=== PATIENT | female | born 1980 | race Caucasian/White ===

== ENCOUNTER 2017-06-10 12:59 | Day surgery (SDC) | payer OTHER ==
[~2017-06-10] VITALS: Ht 167.6 cm; Wt 74.4 kg
[~2017-06-10 12:59] MED LIST: ALTACE 5MG5 MG PO; BACTRIM DS 8001 TAB; FORTAMET500 M1 PO; LEVEMIR SQ; LEVEMIR100 U/ML SC; MOTRIN 200200 MG/TAB PO; NORCO 325 MG-51 TAB PO; NOVOLOG 100U100 U/ML SQ; NOVOLOG FLEX100 U/ML SC; PHENERGAN 25 TA25 MG PO; PRENATAL1 TA1 PO; ULTRAM 50MG TAB50 MG PO; ZOFRAN ODT8 MG PO
[2017-06-10] MEDS ORDERED: PAXIL 10MG10 MG PO (13:15)
[2017-06-10 13:31] VITALS: BP 136/106; PULSE 80; TEMP 98.5
[2017-06-10 15:20] VITALS: BP 117/83; PULSE 96; TEMP 98.4
[2017-06-10 15:35] VITALS: BP 128/87; PULSE 92
[2017-06-10 15:50] VITALS: BP 114/75; PULSE 89
[2017-06-10 16:12] VITALS: BP 118/86; PULSE 96
== END 2017-06-10 16:00 | disposition home or self-care (01) ==
LOC: SDCO 12:59
DX: K31.7 Polyp of stomach and duodenum (principal); K64.0 First degree hemorrhoids; E11.9 Type 2 diabetes mellitus without complications; K29.30 Chronic superficial gastritis without bleeding; Z79.84 Long term (current) use of oral hypoglycemic drugs
CPT/HCPCS: OP; J2250; J2405; J3010; J7030

== ENCOUNTER → 2019-01-25 | Outpatient (CLI) | payer OTHER ==
[~2019-01-25] MED LIST changes: +PAXIL 10MG10 MG PO
== END ==
LOC: DIA.ED 10:14 → SUN.DIA 15:47
DX: E11.9 Type 2 diabetes mellitus without complications (principal); I10 Essential (primary) hypertension
CPT/HCPCS: G0108

== ENCOUNTER → 2019-03-02 | Outpatient (CLI) | payer OTHER | LOC: DIA.ED 09:22 | DX: E11.9 Type 2 diabetes mellitus without complications (principal); E78.5 Hyperlipidemia, unspecified | CPT/HCPCS: G0108 ==

== ENCOUNTER → 2019-05-26 | Outpatient (CLI) | payer OTHER | LOC: COL.RAD 08:39 | DX: Z01.812 Encounter for preprocedural laboratory examination (principal); M47.816 Spondylosis without myelopathy or radiculopathy, lumbar region; M48.061 Spinal stenosis, lumbar region without neurogenic claudication; Z98.1 Arthrodesis status | CPT/HCPCS: A9585 ==

== ENCOUNTER 2019-06-07 17:25 | Inpatient (IN) | payer OTHER ==
[~2019-06-07] VITALS: Ht 167.6 cm; Wt 68.3 kg
[~2019-06-07 17:25] MED LIST changes: -ALTACE 2.5MG T2.5 MG PO; -JARDIANCE10 PO; -TRADJENTA5 MG PO; -WELLBUTRIN SR150 M1 PO
[2019-06-07 19:28] LABS: ACETONE,SERUM MODERATE
[2019-06-07 20:06] LABS: ARTERIAL BLD GAS O2 SATURATION 90.7 % (92-100); ARTERIAL BLD GAS TCO2 CT 12.9; ARTERIAL BLOOD GAS BASE EXCESS -11.9 (-2-2); ARTERIAL BLOOD GAS HCO3 12.2 meq/L (22-26); ARTERIAL BLOOD GAS PO2 60.6 mmHg (80-100); ARTERIAL BLOOD GAS pH 7.32 (7.35-7.45)
[2019-06-07 20:47] LABS: LIPASE 6631 U/L (23-300)
[2019-06-07 21:44] VITALS: BP 125/89; PULSE 117; TEMP 98.5
[2019-06-07] MEDS ORDERED: WELLBUTRIN SR150 M1 PO (21:47)
[2019-06-07] MEDS ORDERED: TRADJENTA5 MG PO (21:50)
[2019-06-07 23:54] VITALS: BP 115/71; PULSE 107; TEMP 97.5
[2019-06-08 03:59] VITALS: BP 115/74; PULSE 90; TEMP 98.5
--- NOTE | 2019-06-08 04:15 | NUR ---
Patient in bed, resting. States pain is 2/10 in abdomen. Denies prn pain medication. Denies further needs at this time. Will continue to monitor.
[2019-06-08 07:45] VITALS: BP 125/78; PULSE 93; TEMP 98.9
[2019-06-08 08:12] LABS: BASO % 0.3 % (0.0-2.0); EOS # 0.1 (0.0-0.7); EOS % 0.9 % (0-4.0); GRAN % 72.6 % (42.2-75.2); HEMOGLOBIN 11.6 g/dl (12.5-16.0); LYMPH % 14.2 % (20.0-51.0); MEAN CELL VOLUME 99 fl (80.0-100.0); MEAN CORPUSCULAR HEMOGLOBIN 34 pg (27.0-31.0); MEAN CORPUSCULAR HGB CONC 34 g/dl (33.0-37.0); MEAN PLATELET VOLUME 10.3 fl (7.4-10.4); MONO # 0.8 (0.1-0.6); MONO % 11.1 % (1.7-9.3); PLATELET COUNT 118 K/mm3 (130-400); RED BLOOD COUNT 3.46 M/mm3 (4.10-5.30); REDCELL DISTRIBUTION WIDTH-CV 11.8 % (11.5-14.5)
[2019-06-08 08:13] LABS: HEMATOCRIT 34.4 % (37.0-47.0)
[2019-06-08 08:33] LABS: CALCIUM 7.9 mg/dL (8.4-10.2); CREATININE, serum 0.45 (0.52-1.25); POTASSIUM 3.7 mmol/L (3.4-5.0)
--- NOTE | 2019-06-08 09:25 | NUR ---
Pt awake and alert this morning upon entry, no C/O pain at this time, states she has some discomfort in her abdominal area, Shift assessments complete, left Pt call light in reach, bed in lowest position.
--- NOTE | 2019-06-08 09:44 | NUR ---
Initial visit; Patient thanked Market Research Analyst for looking in on her and offering spiritual care. Market Research Analyst will keep Aylin in her prayers.
[2019-06-08 12:04] VITALS: BP 137/94; PULSE 94; TEMP 98.1
--- NOTE | 2019-06-08 15:05 | NUR ---
PEDIATRIC NURSE PRACTITIONER student met with the patient to discuss a discharge plan. The patient lives near [place] with a [place] address. The patient lives with her and their three kids. The patient does not use DME and reports independence with ADLs. The patient's PCP is Dr. Rae and patient receives medication from [facility] with no difficulties. The patient does not have advanced directives in the EMR. The patient plans to return home upon discharge with her providing transportation. There are no additional needs at this time.
[2019-06-08 15:44] VITALS: BP 115/74; PULSE 97; TEMP 98.9
[2019-06-08 20:07] VITALS: BP 133/84; PULSE 96
--- NOTE | 2019-06-08 22:15 | NUR ---
PT IN [employer] TONIGHT. WATCHING MOVIE ON HER LAP TOP. DENIES ANY PAIN, SOA. NS INFUSING IN L FA AT 150ML/HR. NO S/S INFILTRATION. A&O X4. UP AD JOSEPH IN ROOM. CALL LIGHT IN REACH.
[2019-06-08 23:16] VITALS: BP 139/95; PULSE 92
[2019-06-09 03:55] VITALS: BP 139/97; PULSE 130; TEMP 98.6
--- NOTE | 2019-06-09 04:00 | NUR ---
Pt sweaty and feels her heart racing. BSS 44. Crisp juice and apple juice given. Pt wants to take shower but I explained to her that it is not safe until we get her blood sugar up and she is feeling better. Rechecked blood sugar at 0455 and she was 100 and feeling much better. VS better.
--- NOTE | 2019-06-09 06:40 | NUR ---
awake resting in bed, up and about independently in room, bedside shift report received from VADIM Garcia
--- NOTE | 2019-06-09 07:08 | NUR ---
Blood sugar 170 and reported to oncoming nurse.
[2019-06-09 07:17] LABS: BASO % 0.2 % (0.0-2.0); EOS % 0.2 % (0-4.0); GRAN # 4.5 (1.4-6.5); GRAN % 82.7 % (42.2-75.2); HEMOGLOBIN 11.4 g/dl (12.5-16.0); LYMPH # 0.4 (1.2-3.4); LYMPH % 7.9 % (20.0-51.0); MEAN CELL VOLUME 98 fl (80.0-100.0); MEAN CORPUSCULAR HEMOGLOBIN 33 pg (27.0-31.0); MEAN CORPUSCULAR HGB CONC 34 g/dl (33.0-37.0); MONO # 0.4 (0.1-0.6); MONO % 7.9 % (1.7-9.3); PLATELET COUNT 108 K/mm3 (130-400); RED BLOOD COUNT 3.41 M/mm3 (4.10-5.30); REDCELL DISTRIBUTION WIDTH-CV 11.6 % (11.5-14.5)
[2019-06-09 07:26] LABS: HEMATOCRIT 33.4 % (37.0-47.0)
[2019-06-09 07:31] LABS: BILIRUBIN,TOTAL 1.2 mg/dL (0.0-1.0); CALCIUM 8.4 mg/dL (8.4-10.2); CREATININE, serum 0.41 (0.52-1.25); MAGNESIUM 1.3 mg/dL (1.6-2.3); POTASSIUM 3.6 mmol/L (3.4-5.0); TOTAL PROTEIN 7.2 gm/dL (6.4-8.2)
[2019-06-09 08:38] VITALS: BP 133/88; PULSE 92; TEMP 98.8
--- NOTE | 2019-06-09 09:15 | NUR ---
resting in bed, Dr Ross was in and saw patient, had regular food and has tolerated well, full assessment completed, see interventions for further info, denies needs
--- NOTE | 2019-06-09 11:09 | NUR ---
resting in bed working on her Woo[employer]
[2019-06-09 12:29] VITALS: BP 140/88; PULSE 97; TEMP 97.6
[2019-06-09] MEDS ORDERED: JARDIANCE10 PO (12:39)
[2019-06-09] MEDS ORDERED: ALTACE 2.5MG T2.5 MG PO (12:39)
--- NOTE | 2019-06-09 13:18 | NUR ---
Magnesium transfused. Patient tolerated well. Discharge paperwork reviewed with patient. Patient verbalzied an understanding of following doctors orders. IV removed, tip intact, gauze and coban appllied. No further needs expressed from patient. Call light within reach
--- NOTE | 2019-06-09 13:31 | NUR ---
Patient ambulated independently outside with nursing staff. Discharge paperwork and personal belonings with patient. No further needs expressed from patient.
== END 2019-06-09 13:30 | disposition home or self-care (01) | DRG 440 ==
LOC: COL.ER 17:25 → MEDICAL 20:31
PROVIDERS: Emergency Medicine; Internal Medicine; Nurse Practitioner Family; ADMIT Student in an Organized Health Care Education/Training Program
DX: K85.90 Acute pancreatitis without necrosis or infection, unspecified (principal); I10 Essential (primary) hypertension; F32.9 Major depressive disorder, single episode, unspecified; F41.9 Anxiety disorder, unspecified; E83.42 Hypomagnesemia; E11.65 Type 2 diabetes mellitus with hyperglycemia; Z90.710 Acquired absence of both cervix and uterus; Z90.49 Acquired absence of other specified parts of digestive tract
CPT/HCPCS: 99222-AI; 99232-AI; 99239; J1650; J1815; J1885; J2270; J3010; J3475; J7030

== ENCOUNTER → 2019-06-07 | Outpatient (CLI) | payer OTHER ==
[~2019-06-07] MED LIST changes: +ALTACE 2.5MG T2.5 MG PO; +JARDIANCE10 PO; +TRADJENTA5 MG PO; +WELLBUTRIN SR150 M1 PO
== END ==
LOC: COL.RAD 15:56
DX: K76.0 Fatty (change of) liver, not elsewhere classified (principal); Z90.49 Acquired absence of other specified parts of digestive tract; Z90.710 Acquired absence of both cervix and uterus; Z98.1 Arthrodesis status
CPT/HCPCS: Q9967

== ENCOUNTER → 2019-09-27 | Outpatient (CLI) | payer OTHER ==
[~2019-09-27] MED LIST changes: +ALTACE 2.5MG T2.5 MG PO; +JARDIANCE10 PO; +TRADJENTA5 MG PO; +WELLBUTRIN SR150 M1 PO
== END ==
LOC: DIA.ED 12:31
DX: E11.9 Type 2 diabetes mellitus without complications (principal); I10 Essential (primary) hypertension
CPT/HCPCS: G0108

== ENCOUNTER → 2020-04-26 | Outpatient (CLI) | payer OTHER | LOC: MC.RAD 09:45 | DX: Z12.31 Encounter for screening mammogram for malignant neoplasm of breast (principal); Z98.82 Breast implant status ==

== ENCOUNTER → 2021-05-08 | Outpatient (CLI) | payer OTHER | LOC: MC.RAD 13:40 | DX: Z12.31 Encounter for screening mammogram for malignant neoplasm of breast (principal); N64.89 Other specified disorders of breast; Z98.82 Breast implant status ==

== ENCOUNTER → 2021-05-11 | Outpatient (CLI) | payer OTHER | LOC: MC.RAD 10:48 | DX: N64.89 Other specified disorders of breast (principal) ==

== ENCOUNTER → 2022-05-21 | Outpatient (CLI) | payer OTHER | LOC: MC.RAD 07:26 | DX: Z12.31 Encounter for screening mammogram for malignant neoplasm of breast (principal) ==

== ENCOUNTER 2024-05-26 20:27 | Emergency (ER) | payer OTHER ==
[~2024-05-26] VITALS: Ht 167.6 cm; Wt 65.0 kg
[~2024-05-26 20:27] MED LIST changes: +ASPIRIN E.C. 8181 MG PO; +DOXYCYCLINE HY100 MG PO; +LEVAQUIN 750MG750 M1 PO; +LEXAPRO 10MG10 MG PO; +METROGEL GEL45 GM TP; +TRESIBA FL100 UNIT/1 SQ
[2024-05-26 20:35] VITALS: TEMP 98.5
[2024-05-26] MEDS ORDERED: Ondansetron 4 MG/2 ML VIAL IV ONE (21:00)
[2024-05-26] MEDS ORDERED: NS 1,000 ML IV ONE (21:00)
[2024-05-26 21:07] LABS: COLLECTION METHOD CLEAN CATCH
[2024-05-26 21:15] LABS: URINE APPEARANCE CLEAR (CLEAR/HAZY); URINE BLOOD TRACE (NEGATIVE); URINE COLOR Dark Yellow (YELLOW); URINE GLUCOSE NEGATIVE (NEGATIVE); URINE KETONE 4+ (NEGATIVE); URINE NITRATE NEGATIVE (NEGATIVE); URINE PROTEIN(semi-quant) 1+ (NEGATIVE)
[2024-05-26 21:15] LABS: BASO % 0.6 % (0.0-2.0); EOS % 0.3 % (0.0-4.0); GRAN # 2.7 K/mm3 (1.4-6.5); GRAN % 76.8 % (42.2-75.2); HEMOGLOBIN 10.7 g/dl (12.5-16.0); LYMPH # 0.4 K/mm3 (1.2-3.4); LYMPH % 12.4 % (20.0-51.0); MEAN CELL VOLUME 103 fl (80.0-100.0); MEAN CORPUSCULAR HEMOGLOBIN 36 pg (27-31); MEAN CORPUSCULAR HGB CONC 35 g/dl (33.0-37.0); MEAN PLATELET VOLUME 10.4 fl (7.4-10.4); MONO # 0.3 K/mm3 (0.1-0.6); MONO % 9.6 % (1.7-9.3); PLATELET COUNT 80 K/mm3 (130-400); RED BLOOD COUNT 2.99 M/mm3 (4.10-5.30); REDCELL DISTRIBUTION WIDTH-CV 14.9 % (11.5-14.5)
[2024-05-26 21:19] LABS: HEMATOCRIT 30.9 % (37.0-47.0)
[2024-05-26 21:27] LABS: ALANINE AMINOTRANSFERASE 35 U/L (0-55); ALBUMIN 3.8 g/dL (3.5-5.0); ALKALINE PHOSPHATASE 141 U/L (40-150); ANION GAP 28 mmol/L (7-16); AST,SGOT 167 U/L (5-34); BILIRUBIN,TOTAL 3.2 mg/dL (0.2-1.2); BLOOD UREA NITROGEN 11 mg/dL (7-19); CALCIUM 8.8 mg/dL (8.4-10.2); CHLORIDE 91 mEq/L (98-107); CREATININE, serum 0.75 mg/dL (0.57-1.11); GLUCOSE 126 mg/dL (70-99); LIPASE 56 U/L (8-78); POTASSIUM 3.5 mEq/L (3.5-4.5); SODIUM 138 mEq/L (136-145); TOTAL PROTEIN 8.6 g/dl (6.2-8.1)
[2024-05-26 21:33] LABS: TROPONIN-I 0.011 ng/mL (0.00-0.033)
[2024-05-26 21:44] LABS: MAGNESIUM < 0.9 mg/dL (1.6-2.6)
[2024-05-26] MEDS ORDERED: Ketorolac 15 MG/ML VIAL IV ONE (21:45)
[2024-05-26] MEDS ORDERED: Magnesium Sulfate 4% 50 ML IV ONE (21:45)
[2024-05-26] MEDS ORDERED: LR 1,000 ML IV ONE (22:00)
[2024-05-26] MEDS ORDERED: NATURAL MAGNES200 MG PO (23:00)
[2024-05-27 00:57] LABS: CALCIUM 7.7 mg/dL (8.4-10.2); CREATININE, serum 0.73 mg/dL (0.57-1.11); POTASSIUM 3.4 mEq/L (3.5-4.5)
[2024-05-27 01:23] LABS: MAGNESIUM 2.1 mg/dL (1.6-2.6)
[2024-05-27 01:30] VITALS: BP 123/77
[2024-05-27 02:05] VITALS: PULSE 70
[2024-05-29] VITALS (68 sets, daily range): O2SAT 88–94
== END 2024-05-27 02:06 | disposition home or self-care (01) ==
LOC: COL.ER 20:27
PROVIDERS: Emergency Medicine
DX: R11.2 Nausea with vomiting, unspecified (principal); E83.42 Hypomagnesemia; R00.0 Tachycardia, unspecified; E10.9 Type 1 diabetes mellitus without complications; Z96.41 Presence of insulin pump (external) (internal); Z88.8 Allergy status to other drugs, medicaments and biological substances
CPT/HCPCS: J1885; J2405; J3475; J7030; J7120

== ENCOUNTER 2024-05-28 09:09 | Inpatient (IN) | payer OTHER ==
[~2024-05-28] VITALS: Ht 167.6 cm; Wt 74.0 kg
[2024-05-28] VITALS (684 sets, daily range): BP systolic 72–90; BP diastolic 47–64; PULSE 101–124; TEMP 97.6–98.1; O2SAT 84–100
[~2024-05-28 09:09] MED LIST changes: +NATURAL MAGNES200 MG PO
[2024-05-28] MEDS ORDERED: LR 1,000 ML IV ONE ×2 (09:30→10:45)
[2024-05-28] MEDS ORDERED: Ketorolac 30 MG/ML VIAL IV ONE (09:45)
[2024-05-28] MEDS ORDERED: LORazepam 2 MG/ML 1 ML VIAL IV ONE ×4 (09:45→12:00)
[2024-05-28 10:01] LABS: BASO % 0.2 % (0.0-2.0); EOS % 0.2 % (0.0-4.0); GRAN # 4.2 K/mm3 (1.4-6.5); GRAN % 73.2 % (42.2-75.2); LYMPH # 0.6 K/mm3 (1.2-3.4); LYMPH % 10.8 % (20.0-51.0); MEAN CORPUSCULAR HGB CONC 33 g/dl (33.0-37.0); MEAN PLATELET VOLUME 10.7 fl (7.4-10.4); MONO # 0.8 K/mm3 (0.1-0.6); MONO % 14.7 % (1.7-9.3); PLATELET COUNT 107 K/mm3 (130-400); RED BLOOD COUNT 2.66 M/mm3 (4.10-5.30); REDCELL DISTRIBUTION WIDTH-CV 15.2 % (11.5-14.5)
[2024-05-28 10:02] LABS: HEMATOCRIT 29.4 % (37.0-47.0); HEMOGLOBIN 9.6 g/dl (12.5-16.0); MEAN CELL VOLUME 111 fl (80.0-100.0); MEAN CORPUSCULAR HEMOGLOBIN 36 pg (27-31)
[2024-05-28 10:21] LABS: ALANINE AMINOTRANSFERASE 28 U/L (0-55); ALBUMIN 3.5 g/dL (3.5-5.0); ALKALINE PHOSPHATASE 135 U/L (40-150); ANION GAP 34 mmol/L (7-16); AST,SGOT 105 U/L (5-34); BILIRUBIN,TOTAL 4.4 mg/dL (0.2-1.2); BLOOD UREA NITROGEN 8 mg/dL (7-19); CALCIUM 8.4 mg/dL (8.4-10.2); GLUCOSE 271 mg/dL (70-99); MAGNESIUM 1.2 mg/dL (1.6-2.6); POTASSIUM 3.6 mEq/L (3.5-4.5); SODIUM 132 mEq/L (136-145); TOTAL PROTEIN 7.8 g/dl (6.2-8.1)
[2024-05-28 10:26] LABS: ALCOHOL(ethanol),MEDICAL < 10 mg/dL (0-10); CHLORIDE 89 mEq/L (98-107)
[2024-05-28] MEDS ORDERED: Insulin Regular Human (NovoLIN R/HumuLIN R) IV ONE (11:15)
[2024-05-28] MEDS ORDERED: NS 1,000 ML IV ONE (11:15)
[2024-05-28] MEDS ORDERED: NS & 20 mEq KCl 1,000 ML IV SCH (12:00)
[2024-05-28] MEDS ORDERED: Insulin Human Regular/NS 100 ML IV SCH (12:00)
[2024-05-28] MEDS ORDERED: LORazepam 2 MG/ML 1 ML VIAL IM PRN (12:00)
[2024-05-28] MEDS ORDERED: D5 1/2 NS & 20 mEq KCl 1,000 ML IV SCH (12:00)
[2024-05-28 12:05] LABS: COLLECTION METHOD CLEAN CATCH
[2024-05-28 12:14] LABS: PH 5.5 (5.0-8.5); URINE APPEARANCE TURBID (CLEAR/HAZY); URINE BLOOD NEGATIVE (NEGATIVE); URINE COLOR Dark Yellow (YELLOW); URINE GLUCOSE TRACE (NEGATIVE); URINE KETONE 3+ (NEGATIVE); URINE NITRATE POSITIVE (NEGATIVE); URINE PROTEIN(semi-quant) 2+ (NEGATIVE)
[2024-05-28] MEDS ORDERED: Folic Acid 1 MG,Thiamine 200 MG in NS 1,000 ML IV ONE (12:15)
[2024-05-28] MEDS ORDERED: diazePAM 10 MG TAB PO SCH (12:45)
[2024-05-28 13:00] LABS: INR 1.8 (0.8-3.0); PROTHROMBIN TIME 18.8 SECONDS (9.7-12.8)
[2024-05-28 14:37] LABS: CALCIUM 7.1 mg/dL (8.4-10.2); CREATININE, serum 1.36 mg/dL (0.57-1.11); POTASSIUM 3.1 mEq/L (3.5-4.5)
[2024-05-28 14:40] LABS: TRICYCLIC ANTIDEPRESS URINE NEGATIVE (NEGATIVE)
[2024-05-28 16:52] LABS: CALCIUM 7.3 mg/dL (8.4-10.2); CREATININE, serum 1.32 mg/dL (0.57-1.11)
[2024-05-28 17:08] LABS: POTASSIUM 2.9 mEq/L (3.5-4.5)
[2024-05-28] MEDS ORDERED: Potassium Chloride 100 ML IV SCH (17:30)
[2024-05-28 18:26] LABS: CALCIUM 7.3 mg/dL (8.4-10.2); CREATININE, serum 1.21 mg/dL (0.57-1.11); POTASSIUM 3.1 mEq/L (3.5-4.5)
[2024-05-28] MEDS ORDERED: LORazepam 2 MG/ML 1 ML VIAL IV PRN (19:15)
[2024-05-28] MEDS ORDERED: LORazepam 1 MG TAB PO PRN (19:15)
--- NOTE | 2024-05-28 19:15 | NUR ---
DR WALKER CALLED THIS NURSE AND NOTIFIED THAT GAP IS CLOSED AND WITH NEXT BMP IF GAP STILL CLOSED INSULIN DRIP CAN BE CHANGED TO LONG ACTING INSULIN. THIS NURSE VERBALIZED UNERSTANDING AND AWAITING ORDERS AT THIS TIME.
--- NOTE | 2024-05-28 20:00 | NUR ---
PT RESTING IN BED UPON ENTERING. PT ALERT TO VOICE AND ORIENTED X4. PT IS DROWSY AND FALLING ASLEEP DURING ASSESSMENT. HEBERT PATENT. PT ON 1L NASAL CANULA. PT DENIES PAIN OR NEEDS AT THIS TIME AND UPDATED ON PLAN OF CARE. BED IN LOWEST POSITION, CALL LIGHT IN REACH, BED ALARM ON.
--- NOTE | 2024-05-28 20:13 | NUR ---
JOSÉ ANTONIO BABB, AT BEDSIDE AND NOTIFIED THIS NURSE THAT LONG ACTING INSULIN IS ORDERED, 2 HOURS POST ADMINISTRATION INSULIN DRIP AND D5 1/2 NS WITH 20 MEQ POTASSIUM WILL BE DISCONTINUED, NPO ORDER CHANGED TO CARB CONTROL DIET. THIS NURSE REPEATED BACK AND VERBALIZED UNDERSTANDING.
[2024-05-28] MEDS ORDERED: Insulin Glargine-ygfn (Lantus) SQ ONE (20:15)
[2024-05-28 20:31] LABS: CALCIUM 7.1 mg/dL (8.4-10.2); CREATININE, serum 1.1 mg/dL (0.57-1.11); POTASSIUM 3.4 mEq/L (3.5-4.5)
--- NOTE | 2024-05-28 22:30 | NUR ---
INSULIN DRIP AND D5 1/2 NS W 20 K DISCONTINUED PER ORDER
[2024-05-28 22:31] LABS: CALCIUM 6.9 mg/dL (8.4-10.2); CREATININE, serum 0.97 mg/dL (0.57-1.11); POTASSIUM 3.8 mEq/L (3.5-4.5)
--- NOTE | 2024-05-28 22:42 | NUR ---
PT EDUCATED ON INDWELLING CATHETER AND INCREASED RISK OF INFECTION. PT EDUCATED ON FREQUENT PERICARE AND REFUSED AT THIS TIME. PT ALSO REFUSING BED BATH AT THIS TIME.
[2024-05-28] MEDS ORDERED: Dextrose 50% Water 25 GM/50 ML SYRINGE IV PRN (23:15)
[2024-05-28] MEDS ORDERED: Glucagon 1 MG VIAL IM PRN (23:15)
[2024-05-28] MEDS ORDERED: Dextrose (Glucose) 15 GM (4 x 3.75 GM) Chewable TABLET PACK PO PRN (23:15)
[2024-05-28] MEDS ORDERED: LR 1,000 ML IV SCH (23:30)
[2024-05-29] VITALS (1182 sets, daily range): BP systolic 74–132; BP diastolic 43–98; PULSE 89–118; TEMP 97.9–98.4; O2SAT 75–100
[2024-05-29 04:57] LABS: ALBUMIN 2.2 g/dL (3.5-5.0); BILIRUBIN,DIRECT 1.7 mg/dL (0.0-0.5); BILIRUBIN,TOTAL 2.2 mg/dL (0.2-1.2); CALCIUM 6.8 mg/dL (8.4-10.2); CREATININE, serum 0.71 mg/dL (0.57-1.11); MAGNESIUM 1.2 mg/dL (1.6-2.6); POTASSIUM 3.7 mEq/L (3.5-4.5); TOTAL PROTEIN 4.9 g/dl (6.2-8.1)
[2024-05-29 05:31] LABS: MEAN CORPUSCULAR HGB CONC 35 g/dl (33.0-37.0); MEAN PLATELET VOLUME 10.7 fl (7.4-10.4); PLATELET COUNT 83 K/mm3 (130-400); REDCELL DISTRIBUTION WIDTH-CV 14.7 % (11.5-14.5)
[2024-05-29 05:32] LABS: HEMATOCRIT 22.9 % (37.0-47.0); HEMOGLOBIN 7.9 g/dl (12.5-16.0); MEAN CELL VOLUME 104 fl (80.0-100.0); MEAN CORPUSCULAR HEMOGLOBIN 36 pg (27-31)
[2024-05-29] MEDS ORDERED: NS 1,000 ML IV SCH (05:45)
[2024-05-29] MEDS ORDERED: Magnesium Sulfate 4% 50 ML IV ONE (06:00)
--- NOTE | 2024-05-29 07:00 | NUR ---
Report received from "Darnell RN; patient currently resting in bed with eyes closed; patient has IV fluids and magnesium running through her peripheral line. Patient is on oxygen running at 1L via NC; patient has two other peripheral INTs. No other lines or tubes are in place at this time. Patient is slightly tachycardic this morning with HR in the 100s; all other vital signs are within normal limits at this time. Per hourly shift manager report patient off insulin drip at approx 2230 last night; patient also on levophed for a few hours overnight, but was stopped at 0330.
[2024-05-29] MEDS ORDERED: Insulin Lispro (HumaLOG) SQ SCH (08:00)
[2024-05-29] MEDS ORDERED: Magnesium Oxide 400 MG TAB PO SCH (08:53)
[2024-05-29] MEDS ORDERED: Magnesium Sulfate 8% 50 ML IV ONE (09:00)
[2024-05-29] MEDS ORDERED: LR 1,000 ML IV SCH (09:00)
[2024-05-29] MEDS ORDERED: cefTRIAXone 1 G in Water For Injection,Sterile 10 ML IV SCH (09:00)
[2024-05-29] MEDS ORDERED: Sodium Bicarbonate 650 MG TAB PO SCH (09:00)
[2024-05-29] MEDS ORDERED: Escitalopram 10 MG TAB PO SCH (09:00)
[2024-05-29] MEDS ORDERED: Multivitamin TAB PO SCH (09:12)
[2024-05-29] MEDS ORDERED: Folic Acid 1 MG TAB PO SCH (09:13)
[2024-05-29] MEDS ORDERED: Thiamine 100 MG TAB PO SCH (09:13)
[2024-05-29] MEDS ORDERED: Cyanocobalamin (Vit B-12) 1,000 MCG TAB PO SCH (09:13)
[2024-05-29 11:23] LABS: COLLECTION METHOD CLEAN CATCH
[2024-05-29 11:29] LABS: URINE APPEARANCE CLEAR (CLEAR/HAZY); URINE BLOOD 2+ (NEGATIVE); URINE COLOR YELLOW (YELLOW); URINE GLUCOSE NEGATIVE (NEGATIVE); URINE KETONE TRACE (NEGATIVE); URINE NITRATE NEGATIVE (NEGATIVE); URINE PROTEIN(semi-quant) NEGATIVE (NEGATIVE)
--- NOTE | 2024-05-29 13:05 | NUR ---
Data: Spiritual care visit attempted during Patent Law Specialist rounds. Patient was sleeping. Assessment: None at this time. Plan of Care: Chaplains will remain available as needed/requested while Patient is admitted to this hospital.
--- NOTE | 2024-05-29 15:59 | NUR ---
SW met with patient, patient was present ( Girish Benz). Patient's mother and father also come for out of the area for supporrt. Patient resides with spouse in outside [place] and reports Dr Pearl as her PCP and pharmacy of choice is [facility]. Patient reports that she is independent with ADLs and does have some DME with her diabetic care, dexom glucose, and insulin. Patient inform SW that she is interested in inpatient [facility], she requested assistance with [facility] and [facility]. GIANA contacted both agencies on behalf of patient and was informed that waiting list for [facility] and pending authorization with [facility] at this time, traffic workforce representative for [facility] informed SW that it would not be before Friday before she can review with team for acceptance. Patient was provided this information and contact information on both agencies to follow up with as she may discharge tomorrow. No further needs at this time.
[2024-05-29] MEDS ORDERED: Acetaminophen 325 MG TAB PO PRN (18:30)
[2024-05-29 18:33] LABS: CALCIUM 7.1 mg/dL (8.4-10.2); CREATININE, serum 0.76 mg/dL (0.57-1.11); POTASSIUM 3.6 mEq/L (3.5-4.5)
--- NOTE | 2024-05-29 20:25 | NUR ---
Received report from Mel Harrington RN at 1915. Pt is resting in bed, with bed in low position, call light within reach. Vitals are stable at this time. Espinal in place with no kinks in tubing. IVF's running at this time. Will continue with pt care.
[2024-05-30] VITALS (411 sets, daily range): BP systolic 132–151; BP diastolic 84–102; PULSE 104–116; TEMP 98.2–98.5; O2SAT 69–99
--- NOTE | 2024-05-30 03:04 | NUR ---
Pt's vitals were stable during the fall back and pt has been resting in bed with the call light within reach.
--- NOTE | 2024-05-30 06:02 | NUR ---
Pt had an uneventful night. Vitals were stable throughout the night. Pt needed O2 throughout the night to keep the SPO2 in the 90's. Ativan given at the beginning of the shift. Pt did not need ativan for the rest of the shift. Valium taper is being given. Pt is currently resting in bed with bed in low position and call light within reach. Espinal was removed early this morning. Will give report to day shift nurse.
[2024-05-30 06:28] LABS: BASO % 0.2 % (0.0-2.0); EOS % 0.4 % (0.0-4.0); GRAN # 3.8 K/mm3 (1.4-6.5); GRAN % 75.6 % (42.2-75.2); LYMPH # 0.5 K/mm3 (1.2-3.4); MEAN CELL VOLUME 103 fl (80.0-100.0); MEAN CORPUSCULAR HGB CONC 35 g/dl (33.0-37.0); MEAN PLATELET VOLUME 9.8 fl (7.4-10.4); MONO # 0.6 K/mm3 (0.1-0.6); MONO % 12.4 % (1.7-9.3); PLATELET COUNT 98 K/mm3 (130-400); RED BLOOD COUNT 2.32 M/mm3 (4.10-5.30); REDCELL DISTRIBUTION WIDTH-CV 14.9 % (11.5-14.5)
[2024-05-30 06:31] LABS: HEMATOCRIT 23.9 % (37.0-47.0); HEMOGLOBIN 8.3 g/dl (12.5-16.0); MEAN CORPUSCULAR HEMOGLOBIN 36 pg (27-31)
[2024-05-30 06:42] LABS: CALCIUM 7.2 mg/dL (8.4-10.2); CREATININE, serum 0.62 mg/dL (0.57-1.11); POTASSIUM 3.3 mEq/L (3.5-4.5)
--- NOTE | 2024-05-30 07:00 | NUR ---
Report received from VADIM Jara; patient currently resting in bed with eyes closed. Patient has fluids running through her peripheral IV, has two other peripheral INTs, and is on oxygen at 4L via NC; no other lines or tubes are in place at this time. Patient tachycardic this morning in the 120s and BP slightly elevated.
[2024-05-30] MEDS ORDERED: MAG-OX 400400 MG/TAB PO (09:22)
[2024-05-30] MEDS ORDERED: FOLIC ACID 11 MG/TA1 PO (09:26)
[2024-05-30] MEDS ORDERED: THIAMINE 1100 MG/TAB PO (09:26)
[2024-05-30] MEDS ORDERED: MULTI VITAMINS1 TAB PO (09:26)
--- NOTE | 2024-05-30 12:05 | NUR ---
Patient discharged home today after this nurse made inquiries as to the status of patient's potential admission to rehab for ETOH withdrawal. This nurse called all three [facility] locations, as well as [facility]. Patient's contact information was given to these locations per patient's wishes, as was her husbands contact information. Patient was sent home with all necessary phone numbers for all [facility] and [facility] locations. Discharge information was gone over with patient, , and patient's mother who were all in the room; all questions were answered. Patient taken out to vehicle by this nurse in a wheelchair.
== END 2024-05-30 11:59 | disposition home or self-care (01) | DRG 638 ==
LOC: COL.ER 09:09 → ICU 11:47
PROVIDERS: Emergency Medicine; Internal Medicine; ADMIT Internal Medicine
DX: E11.10 Type 2 diabetes mellitus with ketoacidosis without coma (principal); F10.239 Alcohol dependence with withdrawal, unspecified; N17.9 Acute kidney failure, unspecified; E83.42 Hypomagnesemia; D69.59 Other secondary thrombocytopenia; K70.9 Alcoholic liver disease, unspecified; F32.A Depression, unspecified; I10 Essential (primary) hypertension; I95.9 Hypotension, unspecified; D64.9 Anemia, unspecified
CPT/HCPCS: A9284; J0696; J1815; J1885; J2060; J3411; J3475; J3480; J7030; J7060; J7120